=== PATIENT | male | born 1955 | race Two or more races ===

== ENCOUNTER 2021-07-14 06:58 | Outpatient (CLI) | payer MEDICARE, OTHER ==
--- NOTE | 2021-07-14 13:58 | Ultrasound Report ---
PROCEDURE: Aorta Screening INDICATIONS: CARDIOVASCULAR SCREENING TECHNIQUE: Real time scanning was performed of the aorta and iliac arteries, with image documentatio n. COMPARISON: None. FINDINGS: Aorta: Proximal aortic diameter measures 2.8 x 2.8 cm. Mid-aorta measures 2 x 2 cm. Distal aortic diameter is 1.9 x 1.6 cm. Iliac arteries: Right common iliac artery measures 1.4 x 1.2 cm. Left common iliac artery measures 1.5 x 1.3 cm. IMPRESSION: No abdominal aortic aneurysm. Reviewed by: Jaxon Bradley MD on 07/14/2021 1:56 PM PDT Approved by: Jaxon Bradley MD on 07/14/2021 1:56 PM PDT Station ID: [id number]
== END 2021-07-14 06:59 | disposition home or self-care (01) ==
LOC: DI 06:58
PROVIDERS: ATTEND Student in an Organized Health Care Education/Training Program
DX: Z13.6 Encounter for screening for cardiovascular disorders (principal)

== ENCOUNTER 2022-09-09 09:41 | Outpatient (CLI) | payer MEDICARE ==
--- NOTE | 2022-09-09 10:34 | Sleep Patient Instructions ---
Sleep Center Visit Summary - Patient Visit Information Reason for Visit: Initial consult for evaluation of sleep disordered breathing and other sleep issues. - Patient Instructions Instructions Attached: Sleep Study, Sleep Clinic Visit Additional Instructions: You will be completing a sleep study, either an in-lab polysomnography (PSG) or home sleep study (HST). You will follow-up in the sleep care office after the sleep study is completed to hear the results and talk about therapy, if needed. You will be called by our office staff to schedule this appointment, but you may contact us with any questions. - Clinic Information Contact: [facility] [address] [place] [address] [email or web address] T: [phone]
--- NOTE | 2022-09-09 10:59 | SLEEP CARE CONSULTATION ---
Information from patient questionnaire entered by Luz Beltran. I have reviewed and concur with the information entered by Luz Beltran. This document represents the service I personally performed and the decisions made by me, Samantha Mitchell ARNP. History of Present Illness Service Date and Time: 09/09/2022 0941 Reason for Visit: New patient Accompanied by: Spouse (Lela) Chief Complaint: reports: Unrefreshed sleep, Snoring, Excessive daytime sleepiness, Observed pauses in breathing, Fatigue, Frequent awakenings at night Date of Onset: 20+YRS Usual bedtime: 11PM Time it takes to fall asleep: 10MIN Snores at night: Yes Observed to quit breathing while asleep: Yes Sleeps alone due to snoring: Yes Number of times waking at night: 4 Reasons for waking at night: reports: Choking, Snoring, Gasping for air, Pain, Bathroom, Other (UNKNOWN) Toss, Turn, or Twitch while sleeping: Yes Recalls having dreams: Yes Usually gets out of bed at: 8AM Feels refreshed in the morning: No Morning headache: Yes (3-4 times a week; last about 1 hour) Sleepy or fatigued during the day: Yes (takes unintentional naps) Ever fallen asleep while driving: Yes (drowsy driving, no accidents) Takes day naps: Yes (daily, sometimes 2 or more; from 10 minutes to 1 hour) Dreams during day naps: Yes Prior sleep studies: No Additional HPI information: I had the pleasure of seeing KADEEM RENNER today regarding the possibility of him having a sleep disorder. His current complaints are excessive daytime sleepiness, fatigue, frequent night awakenings, observed pauses in breathing, snoring and unrefreshed sleep. He states he is not sleeping well and not able to sleep a full night. He states when he is doing something on computer he will fall asleep and wake up 20 minutes later. He dozed off in late afternoon once when driving, but car had a sensor for drifting and woke him up. He states his daytime sleepiness has been worse in last few years. He states he has no energy or motivation to do things. He has been told he snores loudly by and grandkids. - Parasomnia Symptoms Ever been unable to move upon waking from sleep: No Walks in sleep: No Talks in sleep: Yes (occasionally, states has improved) Ever acted out dreams in sleep: No Ever felt weak in the knees when startled or emotional: No Bothered by creepy, crawly, restless sensations in legs: No Problems with memory or concentration: Yes (both; memory may be worse in last 10 years; has Attention deficit) Subjective Initial [place] Sleepiness Scale score: 7 (09/09/22) Past Medical History Past Medical History: reports: Hypertension, Anxiety, Depression, Mood disorder, Attention deficit Social History The patient's occupation is a RE. Patient is and lives in . Have you smoked in the past 12 months: No Alcohol use: No Caffeine use: Yes Caffeine amount and frequency: 1 CUPS COFFEE 1 X DAILY Family History Family history of sleep disordered breathing: Yes Family Hx Sleep Apnea: Father: Snoring, Sleep apnea - Untreated Allergies and Home Medications Known drug allergies: No Drug allergies reviewed: Yes Home medication list reviewed: Yes Allergy and home medication list: Medications: HCTZ 25 mg daily Lisinopril 40 mg daily Amlodipine 10 mg Methylphenidate 30 mg daily Zyrtec OTC daily Review of Systems Weight gain over past 5 years: 10, up now Weight loss over past 5 years: 15 Cardiovascular: reports: high blood pressure Respiratory: reports: shortness of breath Gastrointestinal: reports: heartburn Urinary: reports: urgency Neurological: reports: headaches, head trauma (multiple from football when younger) Psychiatric: reports: Attention Deficit Hyperactivity, anxiety, depression, mood disorder Ear/Nose/Throat: reports: nasal congestion, sinus problems, dry mouth/throat, injury to nose (broken nose 2 times). denies: tonsillectomy Endocrine: reports: sluggishness, increased urination Musculoskeletal: reports: joint pain, back pain Immunologic: reports: sneezing Physical Exam Vital signs obtained and entered by: LUZ Magaña MA Blood Pressure: 136/80 (LEFT ARM) Cuff size: regular Heart Rate: 98 O2 Saturation: 84 Height: 5 ft 10 in Weight: 226 lb Body Mass Index: 32.4 BMI Classification: Obese Neck circumference: 18.5 Mouth and throat: narrow oropharynx Soft palate: long Hard palate: normal Uvula: normal Uvula visualization: 50% Mallampati Class II Tongue: enlarged in size with teeth colmenares on lateral edges Tonsils: 1+ Neck: normal w/o lymphadenopathy or thyromegaly Heart: regular rate and rhythm Lungs: clear bilaterally Impression and Plan 1. Suspected Obstructive Sleep Apnea-Hypopnea Syndrome, as suggested by a history of loud and irregular snoring, observed cessation of breath while asleep, gasping or choking in sleep, morning headache, frequent awakening during the night, unrefreshed sleep, cognitive impairment, and excessive daytime sleepiness. Narrow oropharynx and obesity are common predisposing factors for obstructive sleep apnea-hypopnea syndrome. I recommend proceeding to polysomnography to confirm the diagnosis and to assess severity. If the patient has significant sleep disordered breathing, a manual CPAP titration study will also be performed to find the optimal treatment pressure. I informed the patient of what the sleep studies involve and after some discussion, obtained agreement to proceed. The pathophysiology of obstructive sleep apnea-hypopnea syndrome was discussed with the patient and health risks of cardiovascular and cerebrovascular disease if not treated. Risks of drowsy driving discussed in detail and patient advised to avoid long distance driving and to side puller at the first sign of drowsiness. Patient agreed to plan. * Schedule polysomnography. * Avoid long distance driving or driving when feeling sleepy. * Avoid alcohol, sedative and muscle relaxant around bedtime. * Attempt to lose weight. * Review instructions provided by trained office staff on how to prepare for the sleep study. * Return for follow-up after sleep study completed. Counseling Topics: Weight loss health impact Visit Type: In Office Time Spent with Patient (minutes): 33 Provider Statement: I spent 100% of the Face to Face Visit with the patient with greater than 50% spent counseling the patient and coordination of care.
[2022-09-09 11:03] VITALS: BP 136/80
== END 2022-09-09 09:42 | disposition home or self-care (01) ==
LOC: SC 09:41
PROVIDERS: ATTEND Nurse Practitioner Family
DX: G47.10 Hypersomnia, unspecified (principal); R53.83 Other fatigue; G47.8 Other sleep disorders; R51.9 Headache, unspecified; R06.83 Snoring; R06.81 Apnea, not elsewhere classified; F32.A Depression, unspecified; I10 Essential (primary) hypertension; E66.9 Obesity, unspecified; Z68.32 Body mass index [BMI] 32.0-32.9, adult
CPT/HCPCS: 99203; G0463; 99212

== ENCOUNTER 2022-10-08 19:33 | Outpatient (CLI) | payer MEDICARE | END 2022-10-08 19:34 | disposition home or self-care (01) | LOC: SC 19:33 | PROVIDERS: ATTEND Nurse Practitioner Family | DX: G47.33 Obstructive sleep apnea (adult) (pediatric) (principal) | CPT/HCPCS: 95810 ==

== ENCOUNTER 2022-11-08 11:33 | Outpatient (CLI) | payer MEDICARE ==
--- NOTE | 2022-11-08 11:05 | SLEEP CARE CONSULTATION ---
Information from patient questionnaire entered by Luz Beltran. I have reviewed and concur with the information entered by Luz Beltran. This document represents the service I personally performed and the decisions made by me, Samantha Mitchell ARNP. History of Present Illness Service Date and Time: 11/08/2022 1000 Accompanied by: Spouse Initial [place] Sleepiness Scale score: 7 (09/09/22) Current [place] Sleepiness Scale score: 12 Additional HPI information: KADEEM RENNER returns via video telehealth visit with spouse for follow up and results of the recently performed polysomnography. His sleep study showed very severe obstructive sleep apnea with an average AHI of 67.4 and a faisal oxygen saturation of 57%. I explained the pathophysiology behind obstructive sleep apnea. We then spent quite a bit of time discussing different treatment options. For mild obstructive sleep apnea, surgery and oral appliance are alternatives to nasal CPAP therapy but in moderate or severe cases, nasal CPAP is the most effective and reliable treatment. I reviewed the impact of weight changes on sleep apnea and strongly recommended losing weight. After some discussion, the patient opted to go with the nasal CPAP therapy. Nasal autoCPAP set at 5-15 cmH20 will be ordered with rationale explained. A manual titration study will be ordered if unable to find optimal pressure with office adjustments. I explained how CPAP machine works and what to expect when using the machine. Using CPAP every night in order to get used to it was emphasized. Patient advised to put CPAP mask on before getting into bed so as not to fall asleep without CPAP. To assist acclimation to CPAP use, it could also be used for a short time during day while reading or watching TV. The patient was instructed to call the CPAP supplier to discuss any mechanical problem that may occur. If the mask given is uncomfortable or is difficult to keep on through the night even with adjustment, contact the CPAP supplier as many will replace with another mask style if notified before 30 days. If snoring or perceives is not getting enough air or too much air from the machine, notify this office. Patient does not drink alcohol. Patient was cautioned about risks of drowsy driving until sleepiness symptoms resolve. Sleep Study - Results Type of Sleep Study: Polysomnography (COMPLETED 10/08/22) Prior sleep studies: No Polysomnography/Home Sleep Study results: IMPRESSION: The quality of the study is good. The patient had normal sleep efficiency. The sleep architecture was abnormal for sleep fragmentation and lack of slow wave sleep (N3). Respir atory monitoring showed very severe obstructive sleep apnea-hypopnea (AHI = 67.4) associated with frequent arousals, oxyhemoglobin desaturation and severe hypoxia (faisal oxygen saturation of 57%). The respiratory events occurred independently of sleep stage and body position (supine AHI = 68.6; non-supine = 67.01). Snore was moderate to loud in intensity. There was no significant periodic leg movement of sleep. Cardiac rhythm was normal sinus rhythm without significant arrhythmia. No abnormal behavior (parasomnia) observed during the night. Allergies and Home Medications Known drug allergies: No Drug allergies reviewed: Yes Home medication list reviewed: Yes (no changes) Allergy and home medication list: Allergies No Known Drug Allergies Allergy (Verified 11/07/22 09:37) Review of Systems Review of systems same as previous: Yes (no changes) Physical Exam Vital signs obtained and entered by: SAMANTHA BARCENAS Height: 5 ft 10 in Weight: 222 lb (per pt) Body Mass Index: 31.8 BMI Classification: Obese Impression and Plan 1. Obstructive Sleep Apnea-Hypopnea Syndrome, very severe, with lowest oxygen saturation of 57%. Obviously this is the cause of the patients symptoms of unrefreshed sleep, and excessive daytime sleepiness. Positive pressure therapy could benefit hypertension, anxiety, depression, mood disorder and attention d eficit. As mentioned above, the patient will be started on nasal autoCPAP therapy with pressure set at 5-15 cmH2O. A manual titration study will be completed if unable to find optimal treatment pressure with office adjustments. Compliance guidelines also reviewed. A copy of compliance guidelines will be given for reference at check out. 2. Hypoxemia, severe, with a faisal oxygen saturation of 57% and 130.4 minutes spent under 90%. His baseline oxygen saturation was normal with an average oxygen saturation of 90%. * Nasal auto CPAP therapy, pressure at 5-15 cm H2O. * Attempt to lose weight. * Avoid alcohol consumption near bedtime. * Avoid supine sleep until using CPAP. * The patient is again cautioned about driving until sleepiness completely resolves. * Return one month after CPAP obtained. I will assess response to therapy and compliance at that time. Counseling Topics: Weight loss health impact Prescriptions: Auto CPAP Visit Type: Telehealth Video Video Type: AfterShip Patient Location: Home Other Participants: Spouse/Significant Other Location of Provider: Office Patient agrees and consents to this telehealth visit type: Yes Patient agrees to have their insurance billed: Yes Time Spent with Patient (minutes): 12 Provider Statement: I spent 100% of the Telehealth Video Call with the patient with greater than 50% spent counseling the patient and coordination of care.
== END 2022-11-08 11:34 | disposition home or self-care (01) ==
LOC: SC 11:33
PROVIDERS: ATTEND Nurse Practitioner Family
DX: G47.33 Obstructive sleep apnea (adult) (pediatric) (principal); R09.02 Hypoxemia; E66.9 Obesity, unspecified; Z68.31 Body mass index [BMI] 31.0-31.9, adult

== ENCOUNTER 2023-01-31 12:31 | Outpatient (CLI) | payer MEDICARE ==
--- NOTE | 2023-01-31 14:21 | Ultrasound Report ---
PROCEDURE: Ext Limited Non Vascular INDICATIONS: LEFT HIP LUMP TECHNIQUE: Real-time scanning was performed of the left hip, with image documentation. COMPARISON: None. Findings and impression: There is a well-circumscribed isoechoic to hyperechoic mass at the region of concern anterolateral to left hip, measuring 6.9 x 1.7 x 4.2 cm. This is probably a lipoma, however clinical evaluation is recommended for enlargement versus other sy mptoms. Reviewed by: Vignesh White MD on 01/31/2023 2:19 PM PST Approved by: Vignesh White MD on 01/31/2023 2:19 PM PST Station ID: [id number]
== END 2023-01-31 12:32 | disposition home or self-care (01) ==
LOC: DI 12:31
PROVIDERS: ATTEND Student in an Organized Health Care Education/Training Program
DX: R22.42 Localized swelling, mass and lump, left lower limb (principal)

== ENCOUNTER 2023-05-03 13:22 | Outpatient (CLI) | payer MEDICARE ==
--- NOTE | 2023-05-03 14:05 | Sleep Patient Instructions ---
Sleep Center Visit Summary - Patient Visit Information Reason for Visit: First compliance follow-up - Patient Instructions Additional Instructions: You were here for follow up of CPAP therapy. You will be continued on CPAP therapy with pressure at 8-11 cmH2O. Please let us know if the pressure change is uncomfortable and we can make further adjustments of the pressure. I have added a mask fitting for the Brevida nasal pillows mask as you requested. You should follow up with sleep care in 1-2 months. You may contact us sooner for any questions or concerns. - Clinic Information Contact: [facility] [address] [place] [address] [email or web address] T: [phone]
--- NOTE | 2023-05-03 14:11 | SLEEP CARE CONSULTATION ---
Information from patient questionnaire entered by Mary Beltran. I have reviewed and concur with the information entered by Mary Beltran. This document represents the service I personally performed and the decisions made by , Samantha Mitchell ARNP. History of Present Illness Service Date and Time: 05/03/2023 1322 Previous diagnosis: Very Severe, Obstructive Sleep Apnea-Hypopnea Syndrome AHI: 67.4 (10/08/22) Reason for follow up: first compliance Equipment type: CPAP (RESMED Airsense 11; s/u 11/14/2022) Equipment obtained from: [facility] ([employer]) Mask style: Nasal (over the nose) Mask brand: Resmed (AirFit N20) Backup mask available: No Prior sleep studies: No Type of Sleep Study: Polysomnography (COMPLETED 10/08/22) HPI additional information: KADEEM RENNER was diagnosed to have very severe, AHI 67.4, obstructive sleep apnea-hypopnea syndrome and returned today for CPAP therapy first compliance follow-up. Sleep Study - Results Type of Sleep Study: Polysomnography (COMPLETED 10/08/22) Prior sleep studies: No CPAP Compliance Data - Data Reviewed with Patient Average duration of nightly device use: 6 hours 56 minutes Compliance rate %: 73 (/ days used) Current pressure setting (cmH2O): 5-15 (median 8.2, avg 10.9, max 12.5) Average residual AHI: 2.2 Central apnea: 0.1 Obstructive apnea: 1.9 Hypopnea: 0.1 Average large leak: 1.2 L/min Subjective Missed days of use due to: reports: travel Patient concerns: reports: aerophagia (sometimes), mask discomfort (associated with tossing and turning), air blowing in eyes, mask leak noise, condensation in mask/hose, dry mouth, nose, throat (occasionally), epistaxis (rare but happens), other (headaches, once a week; has sinus allergy issues). denies: nasal congestion Observed to snore while using device: No Current pressure setting perceived as: comfortable On therapy, patient: reports: sleeping better, awakening more refreshed, being more awake and alert during the day, more rested overall. denies: drowsiness while driving Initial [place] Sleepiness Scale score: 7 (09/09/22) Current [place] Sleepiness Scale score: 7 (05/03/23) Allergies and Home Medications Known drug allergies: No Drug allergies reviewed: Yes Home medication list reviewed: Yes (metformin) Allergy and home medication list: Allergies No Known Drug Allergies Allergy (Verified 05/01/23 09:55) Review of Systems Review of systems same as previous: No (Pre-diabetic) Physical Exam Vital signs obtained and entered by: MARY Magaña MA Blood Pressure: 144/81 (RIGHT ARM) Cuff size: regular Heart Rate: 84 O2 Saturation: 98 Height: 5 ft 10 in Weight: 229 lb 6.4 oz Body Mass Index: 32.9 BMI Classification: Obese Impression and Plan 1. Obstructive Sleep Apnea-Hypopnea Syndrome, very severe, with good treatment compliance and good apnea control. On CPAP therapy, the patient has better sleep quality and is more rested overall. He has been having issues with his mask not feeling comfortable, he is using a ResMed N20. He says he moves a lot at night and it is dislodging causing leaks. He saw a mask that he thinks he would like, the F&P Brevida. I will write for a mask refitting for this nasal pillows mask. The patients pressure will be changed to autoCPAP 8-11 cmH20 to reflect pressure being used. Patient advised to contact me if pressure change is uncomfortable so that it can be adjusted. Goals for apnea control discussed. Patient's apnea severity and rationale for treatment to reduce apnea, improve sleep quality and reduce cardiovascular and cerebrovascular events was reviewed. I also reviewed the benefit of consistent device use of CPAP for hypertension, depression/anxiety, mood disorder, attention deficit. He was just put on Metformin for high blood sugars, possible pre-diabetes. 2. Obesity, unspecified. Currently patients BMI is 32.9. Obesity increases the risk of apnea, CPAP pressure requirements and overall health risks especially cardiovascular and diabetes. Thus patient is advised to lose weight. * Change auto CPAP pressure to 8-11 cmH2O * Mask refitting for Brevida nasal pillows mask * Notify me if snoring with mask or feeling that the pressure is too much or too little * Attempt to lose weight * Call this office if any problems using CPAP * Return for follow up in 1-2 months, or sooner if concerns arise Counseling Topics: Spare mask, Weight loss health impact Follow up with Sleep Care in: 1-2 months Visit Type: In Office Time Spent with Patient (minutes): 23 Provider Statement: I spent 100% of the Face to Face Visit with the patient with greater than 50% spent counseling the patient and coordination of care.
[2023-05-03 14:18] VITALS: BP 144/81; O2SAT 98
== END 2023-05-03 13:23 | disposition home or self-care (01) ==
LOC: SC 13:22
PROVIDERS: ATTEND Nurse Practitioner Family
DX: G47.33 Obstructive sleep apnea (adult) (pediatric) (principal); E66.9 Obesity, unspecified; Z68.32 Body mass index [BMI] 32.0-32.9, adult
CPT/HCPCS: 99213; G0463; 99212

== ENCOUNTER 2023-06-27 09:48 | Outpatient (CLI) | payer MEDICARE ==
--- NOTE | 2023-06-27 10:44 | Sleep Patient Instructions ---
Sleep Center Visit Summary - Patient Visit Information Reason for Visit: 2-month follow-up - Patient Instructions Additional Instructions: You were here for follow up of CPAP therapy. You will be continued on CPAP therapy with pressure at 8-11 cmH2O. I have written for a mask refitting, [facility] should be calling you to set this up. Please let us know if there are any problems. You should follow up with sleep care in 3 months. You may contact us sooner for any questions or concerns. - Clinic Information Contact: [facility] [address] [place] [id number] [email or web address] T: [phone]
--- NOTE | 2023-06-27 10:48 | SLEEP CARE CONSULTATION ---
Information from patient questionnaire entered by Mary Beltran. I have reviewed and concur with the information entered by Mary Beltran. This document represents the service I personally performed and the decisions made by , Samantha Mitchell ARNP. History of Present Illness Service Date and Time: 06/27/2023947 Previous diagnosis: Very Severe, Obstructive Sleep Apnea-Hypopnea Syndrome AHI: 67.4 (10/08/22) Reason for follow up: other (2MONTH F/U) Equipment type: CPAP (RESMED Airsense 11, s/u 11/14/2022) Equipment obtained from: [employer] ([employer] supplies) Mask style: Nasal (over the nose) Backup mask available: No Prior sleep studies: No Type of Sleep Study: Polysomnography (COMPLETED 10/08/22) HPI additional information: KADEEM RENNER was diagnosed to have very severe, AHI 67.4, obstructive sleep apnea-hypopnea syndrome and returned today for CPAP therapy two month follow-up. Sleep Study - Results Type of Sleep Study: Polysomnography (COMPLETED 10/08/22) Prior sleep studies: No CPAP Compliance Data - Data Reviewed with Patient Average duration of nightly device use: 6 HRS 45 MINS Compliance rate %: 92 (04/21/23-06/19/23; 60/60 days used) Current pressure setting (cmH2O): 8-11 Average residual AHI: 1.6 Central apnea: 0 Obstructive apnea: 1.3 Hypopnea: 0.1 Average large leak: 1.7 L/min Subjective Patient concerns: reports: air blowing in eyes, mask leak noise, condensation in mask/hose (improving), dry mouth, nose, throat (occasional dry mouth), other (headaches several times a week). denies: aerophagia, mask discomfort, nasal congestion, epistaxis Observed to snore while using device: No Current pressure setting perceived as: comfortable On therapy, patient: reports: sleeping better, awakening more refreshed, more rested overall, drowsiness while driving (some times with long drives), other (less napping) Initial [place] Sleepiness Scale score: 7 (09/09/22) Current Raymond Sleepiness Scale score: 6 (06/27/23) Allergies and Home Medications Known drug allergies: No Drug allergies reviewed: Yes Home medication list reviewed: Yes (Metformin) Allergy and home medication list: Allergies No Known Drug Allergies Allergy (Verified 06/22/23 11:19) Review of Systems Review of systems same as previous: Yes (NO CHANGE) Physical Exam Vital signs obtained and entered by: MARY Magaña MA Blood Pressure: 132/76 (RIGHT ARM) Cuff size: long Heart Rate: 69 O2 Saturation: 96 Height: 5 ft 10 in Weight: 232 lb 6.4 oz Body Mass Index: 33.3 BMI Classification: Obese Impression and Plan 1. Obstructive Sleep Apnea-Hypopnea Syndrome, very severe, with good treatment compliance and good apnea control. On CPAP therapy, the patient has better sleep quality and is more rested overall. He would like to try a different mask. I will write for a mask refitting to see if he can get a better fitting mask. We discussed using his heated hose to balance use of humidifier and he voiced understanding. He is occasionally getting some phlegm that he is coughing up since using the CPAP but he denies aerophagia. He feels the pressure is ideal. I will have him follow up in 3 months. Patient's apnea severity and rationale for treatment to reduce apnea, improve sleep quality and reduce cardiovascular and cerebrovascular events was reviewed. I also reviewed the benefit of consistent device use of CPAP for hypertension, depression/anxiety, mood disorder, attention deficit, pre-diabetes. 2. Obesity, unspecified. Currently patients BMI is 33.3. Obesity increases the risk of apnea, CPAP pressure requirements and overall health risks especially cardiovascular and diabetes. Thus patient is advised to lose weight. * Continue auto CPAP pressure at 8-11 cmH2O * Mask refitting * Update supply prescription * Notify me if snoring with mask or feeling that the pressure is too much or too little * Attempt to lose weight * Call this office if any problems using CPAP * Return for follow up in 3 months, or sooner if concerns arise Counseling Topics: Weight loss health impact Prescriptions: Other (mask refitting) Follow up with Sleep Care in: 3 months Visit Type: In Office Time Spent with Patient (minutes): 23 Provider Statement: I spent 100% of the Face to Face Visit with the patient with greater than 50% spent counseling the patient and coordination of care.
[2023-06-27 10:52] VITALS: BP 132/76; O2SAT 96
== END 2023-06-27 09:49 | disposition home or self-care (01) ==
LOC: SC 09:48
PROVIDERS: ATTEND Nurse Practitioner Family
DX: G47.33 Obstructive sleep apnea (adult) (pediatric) (principal); E66.9 Obesity, unspecified; Z68.33 Body mass index [BMI] 33.0-33.9, adult
CPT/HCPCS: 99213; G0463; 99212

== ENCOUNTER 2023-10-25 13:07 | Outpatient (CLI) | payer MEDICARE ==
--- NOTE | 2023-10-25 13:46 | Sleep Patient Instructions ---
Sleep Center Visit Summary - Patient Visit Information Reason for Visit: 4-month follow-up - Patient Instructions Additional Instructions: You were here for follow up of CPAP therapy. You will be continued on CPAP therapy with pressure at 8-11 cmH2O. I have written for a mask refitting. Please reach out to [employer] for supplies and to get a new mask refitting. You should follow up with sleep care in 12 months. You may contact us sooner for any questions or concerns. - Clinic Information Contact: [facility] [address] [place] [address] [email or web address] T: [phone]
--- NOTE | 2023-10-25 13:49 | SLEEP CARE CONSULTATION ---
Information from patient questionnaire entered by Luz Beltran. I have reviewed and concur with the information entered by Luz Beltran. This document represents the service I personally performed and the decisions made by , Samantha Mitchell ARNP. History of Present Illness Service Date and Time: 10/25/2023 1307 Previous diagnosis: Very Severe, Obstructive Sleep Apnea-Hypopnea Syndrome AHI: 67.4 (10/08/22) Reason for follow up: other (4 MONTH F/U) Equipment type: CPAP (RESMED Airsense 11, s/u 11/14/2022) Equipment obtained from: [employer] ([employer]) Mask style: Nasal (over the nose) Backup mask available: No Last cushion change: months Prior sleep studies: No Type of Sleep Study: Polysomnography (COMPLETED 10/08/22) HPI additional information: KADEEM RENNER was diagnosed to have very severe, AHI 67.4, obstructive sleep apnea-hypopnea syndrome and returned today for CPAP therapy four month follow- up. Sleep Study - Results Type of Sleep Study: Polysomnography (COMPLETED 10/08/22) Prior sleep studies: No CPAP Compliance Data - Data Reviewed with Patient Average duration of nightly device use: 6 hours 31 minutes Compliance rate %: 91 (06/24/23-10/21/23) Current pressure setting (cmH2O): 8-11 Average residual AHI: 0.9 Central apnea: 0 Obstructive apnea: 0.7 Hypopnea: 0.1 Average large leak: 2 L/min Subjective Patient concerns: reports: mask discomfort, air blowing in eyes, mask leak noise, condensation in mask/hose, nasal congestion. denies: aerophagia, dry mouth, nose, throat, epistaxis Observed to snore while using device: No Current pressure setting perceived as: comfortable On therapy, patient: reports: sleeping better, awakening more refreshed, being more awake and alert during the day, more rested overall. denies: drowsiness while driving Initial [place] Sleepiness Scale score: 7 (09/09/22) Current [place] Sleepiness Scale score: 10 () Allergies and Home Medications Known drug allergies: No Drug allergies reviewed: Yes Home medication list reviewed: Yes (no changes) Allergy and home medication list: Allergies No Known Drug Allergies Allergy Review of Systems Review of systems same as previous: Yes (NO CHANGE) Physical Exam Vital signs obtained and entered by: LUZ Magaña MA Blood Pressure: 136/80 (LEFT ARM) Cuff size: long Heart Rate: 79 O2 Saturation: 96 Height: 5 ft 10 in Weight: 226 lb 6.4 oz Body Mass Index: 32.5 BMI Classification: Obese Impression and Plan 1. Obstructive Sleep Apnea-Hypopnea Syndrome, very severe, with good treatment compliance and good apnea control. On CPAP therapy, the patient has better sleep quality and is more rested overall. He would like to try a different style of mask. I will write for a mask refitting for a nasal pillows mask per his request. He also has not gotten a lot of supplies from [employer] but he has not called to ask for them. I encouraged him to call [employer] to get supplies and get set up with a new mask fitting. He has had an issue with getting "flooded out" by his CPAP. I checked and his tube temperature was at 68 degrees. I increased the tube temperature to 80 degrees. His humidifier is currently set at 5. We discussed ways of adjusting heated hose and humidifier to reduce condensation in the tubing and mask. He voiced understanding. Patient's apnea severity and rationale for treatment to reduce apnea, improve sleep quality and reduce cardiovascular and cerebrovascular events was reviewed. I also reviewed the benefit of consistent device use of CPAP for hypertension, depression/anxiety, attention deficit, mood disorder and pre-diabetes. 2. Obesity, unspecified. Currently patients BMI is 32.5. Obesity increases the risk of apnea, CPAP pressure requirements and overall health risks especially cardiovascular and diabetes. Thus patient is advised to lose weight. * Continue auto CPAP pressure at 8-11 cmH2O * Mask refitting for nasal pillows mask * Notify me if snoring with mask or feeling that the pressure is too much or too little * Attempt to lose weight * Call this office if any problems using CPAP * Return for follow up in 12 months, or sooner if concerns arise Counseling Topics: Spare mask, Weight loss health impact Prescriptions: Other (mask refitting) Follow up with Sleep Care in: 1 year Visit Type: In Office Time Spent with Patient (minutes): 25 Provider Statement: I spent 100% of the Face to Face Visit with the patient with greater than 50% spent counseling the patient and coordination of care.
[2023-10-25 13:50] VITALS: BP 136/80; O2SAT 96
== END 2023-10-25 13:08 | disposition home or self-care (01) ==
LOC: SC 13:07
PROVIDERS: ATTEND Nurse Practitioner Family
DX: G47.33 Obstructive sleep apnea (adult) (pediatric) (principal); E66.9 Obesity, unspecified; Z68.32 Body mass index [BMI] 32.0-32.9, adult
CPT/HCPCS: 99213; G0463; 99212